=== PATIENT | female | born 2000 | race Caucasian/White ===

== ENCOUNTER → 2022-12-11 08:27 | Outpatient (BNVA) | payer SELFPAY | PROVIDERS: Family Provider Family Medicine; Visit Provider Nurse Practitioner Family | DX: R50.9 Fever, unspecified (principal) | CPT/HCPCS: 87426 ==

== ENCOUNTER 2024-06-01 03:35 | Inpatient (IN) | payer MEDICAID, SELFPAY ==
[2024-05-31 19:14] VITALS: BMI 29.6
[2024-05-31 19:31] VITALS: BP 125/87; PULSE 100
[2024-05-31 22:05] VITALS: BP 128/66; PULSE 69
[2024-05-31 22:21] VITALS: BP 122/69; PULSE 74
[2024-05-31 23:08] VITALS: BP 135/79; PULSE 69
[2024-05-31 23:22] LABS: Basophils % 0.1 %; Eosinophils % 0.4 %; Hematocrit 35.3 % (36-47); Lymphocytes # 0.9 10^3/uL (0.8-4.8); Lymphocytes % 8.5 %; Mean Corpuscular HGB Conc 33.7 g/dL (30-55); Mean Corpuscular Hemoglobin 30.9 pg (27-33); Mean Corpuscular Volume 91.7 fl (85-98); Mean Platelet Volume 11.5 fL (7.4-10.4); Monocytes # 0.5 10^3/uL (0.2-0.9); Monocytes % 4.6 %; Neutrophils # 9.01 10^3/uL (1.8-7.7); Nucleated Red Blood Cells % 0 %; Platelet Count 192 10^3/cmm (157-399); Red Blood Count 3.85 10^6/uL (3.85-5.65); Red Cell Distribution Width 12.8 % (12.1-15.1); White Blood Count 10.47 10^3/uL (3.29-11.43)
[2024-05-31 23:34] VITALS: BP 129/75; PULSE 67
[2024-06-01] VITALS (51 sets, daily range): BP systolic 91–137; BP diastolic 50–83; PULSE 58–95; RESP 16; TEMP 36.7; O2SAT 89–100
[2024-06-01] MEDS: lactated ringers 1,000 ML 999 ML IV ×2 (00:07→00:52)
[2024-06-01] MEDS: ROPivacaine syringe 100 MG/50 ML SYRINGE 13 MG EPIDURAL (01:01)
--- NOTE | 2024-06-01 01:07 | ANES.PAUD2 ---
Pre-Anesthetic Update Pre-Anesthetic Assessment: Date of Surgery/Procedure: 06/01/24 Proposed Procedure: Epidural Any changes to Pre-Anesthetic Assessment?: No Labs Last 48hrs: Short CBC 05/31/24 Range/Units 23:10 WBC 10.47 (3.29-11.43) 10^ 3/uL Hgb 11.90 (11.27-16.99) g/ dL Hct 35.3 L (36-47) % MCV 91.7 (85-98) fl Plt Count 192 (157-399) 10^3/c mm Neut % (Auto) 86.0 % Neut # (Auto) 9.01 H (1.8-7.7) 10^3/u L Blood Bank 05/31/24 23:10 Blood Type A Positive Rho(D) Type Rh positive Antibody Screen Negative Vitals: Pulse Rate 68 06/01/24 01:02 Pulse Rhythm Regular 05/31/24 23:19 Pulse Strength 3+ Normal 05/31/24 23:19 Respiratory Effort Spontaneous, Non- Labored 05/31/24 23:19 Respiratory Depth Normal 05/31/24 23:19 Respiratory Patter n Normal 05/31/24 23:19 Blood Pressure 130/83 06/01/24 00:58 Pulse Oximetry 100 06/01/24 01:02 Oxygen Delivery Me thod Room Air 05/31/24 23:19 Exam: Pre-Anes Outpt Exam: alert, oriented x 3, clear to auscultation bilaterally and regular rate & rhythm Cardiac Studies: No Data to Display
--- NOTE | 2024-06-01 01:07 | ANES.PROC ---
Anesthesia Procedures Procedure/Date: 06/01/24 Epidural: Time Out Performed: Yes Consents Signed: Procedure Consent and NPO Consent Consent: requested by attending/covering physician, from patient, risks and benefits reviewed and patient agrees to proceed Lumbar Level: L3-L4 Epidural position: sitting Epidural procedure: sterile prep of area (betadine), 1% lidocaine to numb the area (3 mLs), neg for paresthesia, test dose given, 1.5% xylocaine 1:200k epi (3 mLs/ 2 mLs), 0.2% Ropivacaine bolus ml (2 mLs), placed PCEA, no systemic response, sterile dressing applied, L.U.D. no apparent complications and 0.2% Ropiavacaine @ mls/hr (13) Additional Comments: EDOUARD 6.5cm, catheter threaded to 11.5cm. Patient tolerated procedure well. Negative for heme and CSF upon aspiration.
[2024-06-01] MEDS: dextrose 5%-lactated ringers 1,000 ML 125 ML IV (01:53)
--- NOTE | 2024-06-01 03:33 | P.HP_ITS ---
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 Patient was found to be grossly intact but was zaida every 2 to 3 minutes. Patient was watched for an hour and did not make small amount of change in that time. After another 2 hours of monitoring the patient did progressed to 4 cm dilated. At this time the patient was admitted for labor. The patient had normal lab work. The only complication during was late initiation of care which occurred approximately 19 weeks gestation. She did have consistent care after initiation. GBS was negative. Present Details : 1 Para: 0 care: good care Labs Blood type OB HPI: A (+) positive Rubella: Immune RPR: Negative GBS: Negative HBsAG: Negative Review of Systems 2 General: Reports: 10 or more systems reviewed and unremarkable except in HPI and below Medications/Allergies Home Medications Medication Instructions Recorded Confirmed Last Taken Type vit no.95-ferrous 1 tab PO DAILY 05/31/24 05/31/24 Unknown History fumarate 28 mg-folic acid 800 mcg tablet () Allergies Allergy/AdvReac Type Severity Reaction Status Date / Time No Known Allergies Allergy Verified 05/31/24 21:41 Vitals/I&O/Wt Last Vital Signs Pulse 74 06/01/24 03:29 BP 114/63 06/01/24 03:29 Pulse Ox 100 06/01/24 01:02 O2 Del Method Room Air 05/31/24 23:19 05/31/24 05/31/24 06/01/24 14:59 22:59 06:59 Intake Total 1999 Balance 1999 Weight last 48 hrs Weight 88.451 kg Physical Exam 2 Const: COMMON NORMALS: no acute distress, average body habitus and patient oriented x3 Resp: COMMON NORMALS: normal respiratory effort, No retractions and No use of accessory muscles Cardio: COMMON NORMALS: no JVD, regular rate and regular rhythm GI: OTHER: Gravid uterus : COMMON NORMALS: Yes normal external appearance Extremity: COMMON NORMALS: no clubbing, cyanosis or edema Neuro: COMMON NORMALS: patient oriented x3 and moves all extremities Psych: COMMON NORMALS: mental status grossly normal Skin: COMMON NORMALS: no rashes or lesions noted Urinary Catheter Management: Mills Latex Free: Cath Placed During This Visit: yes Urinary Catheter Date of Insertion: 06/01/24 Urinary Catheter Time of Insertion: 01:36 Data 05/31/24 23:10 Results Labs OB ([facility]): 2 Obstetrics US 03/22/24 Blood Type A Positive 05/31/24 Antibody Screen Negative 05/31/24 Hct 35.3 % (36-47) L 05/31/24 Hgb 11.90 g/dL (11.27-16.99) 05/31/24 Rho(D) Type Rh positive 05/31/24 Plt Count 192 10^3/cmm (157-399) 05/31/24 A&P Assessment and plan (1) Term : Proceed with routine labor management. Attestations 2 Medical Necessity Statement*: Admit for labor. Anticipate 1 midnight stay. Coding Level of Care Code Acute Code for Chg Fwd Diagnoses Term Z34.90
[2024-06-01] MEDS: ondansetron 2 mg/ML SDV 2 mL 4 MG IVP (03:48)
[2024-06-01] MEDS: ROPivacaine syringe 100 MG/50 ML SYRINGE 10 MG EPIDURAL (04:52)
[2024-06-01] MEDS: acetaminophen 325 mg Tablet 650 MG PO (06:49)
--- NOTE | 2024-06-01 08:43 | PM.DELIVERY ---
Delivery Note: Date of delivery: June 01, 2024 Pre-delivery diagnoses: Term intrauterine , meconium Post-delivery diagnoses: Same, viable infant female Procedure: Otitis vaginal delivery Op report anesthesia: Epidural Estimated blood loss (mL): 150 Pre-Delivery Course: This is a 23-year-old -0-1-0 that presented at 38 weeks 4 days with concerns of spontaneous rupture membranes. Patient was found to be zaida and while monitoring the patient the patient did make cervical change. Patient was then admitted and routine labor management was provided. The patient progressed as expected to completion. At that time artificial rupture membranes was performed and meconium was noted. The patient started pushing but did not make much progress so the patient opted to rest and labor down. Delivery: After a period of laboring down, the patient was placed back into normal lithotomy position and started pushing with contractions. After an hour of additional pushing the patient did deliver the infant's head followed by body without difficulty. The was placed onto mother's abdomen and the cord was then clamped and cut. The placenta was delivered with minimal traction. Review of the perineum showed a first-degree right vaginal tear that was actively bleeding. Patient had a smaller periurethral tear. Vaginal tear was repaired with 2-0 Vicryl and bleeding was controlled. Periurethral tear was minor and did not need repair. At the end of this procedure the uterus was was firm and bleeding was appropriate. Post-Delivery Status: Stable A&P Assessment and plan (1) Spontaneous vaginal delivery: Proceed with routine care. Coding Level of Care Code Acute Code for Chg Fwd Diagnoses Spontaneous vaginal delivery O80
[2024-06-01] MEDS: ibuprofen 800 mg tablet PO ×3 (10:52→21:40)
[2024-06-01] MEDS: lanolin oint 7 gm 1 APPLIC TOPICAL (10:52)
[2024-06-01] MEDS: benzocaine-menthol 78 gm Canister 1 SPRAY TOPICAL (10:52)
[2024-06-01] MEDS: PRENATAL VIT NO.130/IRON/FOLIC 1 EACH TABLET PO (10:53)
[2024-06-01] MEDS: docusate sodium 100 mg Capsule PO ×2 (10:53→19:09)
[2024-06-01] MEDS: oxytocin 30 UNIT/500 ML BAG 600 UNIT IV (14:00)
[2024-06-01 20:48] LABS: Hematocrit 31.9 % (36-47); Mean Corpuscular HGB Conc 33.9 g/dL (30-55); Mean Corpuscular Hemoglobin 31.6 pg (27-33); Mean Corpuscular Volume 93.3 fl (85-98); Mean Platelet Volume 11.6 fL (7.4-10.4); Platelet Count 162 10^3/cmm (157-399); Red Blood Count 3.42 10^6/uL (3.85-5.65); Red Cell Distribution Width 12.8 % (12.1-15.1); White Blood Count 9.07 10^3/uL (3.29-11.43)
[2024-06-02 05:01] VITALS: BP 118/74; PULSE 70; RESP 16; TEMP 36.6; TEMP 36.7; O2SAT 97
--- NOTE | 2024-06-02 06:48 | P.DS_ITS ---
Discharge Providers SAUSAGE COOKER Date of Admission: 06/01/24 03:35 Date of Discharge: 06/02/24 Attending Provider at Admission: Billy Royal MD Attending Provider at Discharge: Billy Royal MD Diagnoses at Discharge Discharge Diagnosis (1) Spontaneous vaginal delivery: Status: Acute Reason for Visit Reason for Visit: [facility] Hospital Course Hospital Course This is a 23-year-old G2, P1 delivered vaginally on June 01. The patient had presented with possible rupture but was found to be intact. However, she was zaida every 2 to 3 minutes she progressed completion and delivered a viable female without difficulty. Patient had no complications. Lochia has been appropriate. Vital signs stable. Information Peripartum Data: Infant Delivery Method: Vaginal Physical Exam Const: COMMON NORMALS: no acute distress, average body habitus and patient oriented x3 Neck/C-Spine: COMMON NORMALS: no JVD Resp: COMMON NORMALS: normal respiratory effort, No retractions and No use of accessory muscles Cardio: COMMON NORMALS: no JVD, regular rate and regular rhythm RATE: regular rate RHYTHM: regular rhythm GI: OTHER: Uterus firm and below umbilicus Extremity: COMMON NORMALS: no clubbing, cyanosis or edema Neuro: COMMON NORMALS: patient oriented x3 and moves all extremities Psych: COMMON NORMALS: mental status grossly normal Skin: COMMON NORMALS: no rashes or lesions noted GENERAL SKIN EXAM: no rashes or lesions noted Urinary Catheter Management: Mills Latex Free: Cath Placed During This Visit: yes, but has since been removed by the nurse Reason for Continuing Indwelling Catheter: Decision to DC Catheter Urinary Catheter Date of Insertion: 06/01/24 Urinary Catheter Time of Insertion: 01:36 Date Urinary Catheter Removed: 06/01/24 Time Urinary Catheter Discontinued: 04:10 Discharge Data Studies Completed and Pending Laboratory Results WBC 9.07 10^3/uL (3.29-11.43) 06/01/24 20:30 RBC 3.42 10^6/uL (3.85-5.65) L 06/01/24 20:30 Hgb 10.80 g/dL (11.27-16.99) L 06/01/24 20:30 Hct 31.9 % (36-47) L 06/01/24 20:30 MCV 93.3 fl (85-98) 06/01/24 20:30 MCH 31.6 pg (27-33) 06/01/24 20:30 MCHC 33.9 g/dL (30-55) 06/01/24 20:30 RDW 12.8 % (12.1-15.1) 06/01/24 20:30 Plt Count 162 10^3/cmm (157-399) 06/01/24 20:30 MPV 11.6 fL (7.4-10.4) H 06/01/24 20:30 Neut % (Auto) 86.0 % 05/31/24 23:10 Lymph % (Auto) 8.5 % 05/31/24 23:10 Stanly % (Auto) 4.6 % 05/31/24 23:10 Eos % (Auto) 0.4 % 05/31/24 23:10 Baso % (Auto) 0.1 % 05/31/24 23:10 Neut # (Auto) 9.01 10^3/uL (1.8-7.7) H 05/31/24 23:10 Lymph # (Auto) 0.9 10^3/uL (0.8-4.8) 05/31/24 23:10 Stanly # (Auto) 0.5 10^3/uL (0.2-0.9) 05/31/24 23:10 Eos # (Auto) 0.0 10^3/uL (0.0-0.8) 05/31/24 23:10 Baso # (Auto) 0.0 10^3/uL (0.0-0.1) 05/31/24 23:10 Nucleated RBC % (auto) 0 % 05/31/24 23:10 Nucleated RBCs # 0.0 /100WBC 05/31/24 23:10 Blood Type A Positive 05/31/24 23:10 Rho(D) Type Rh positive 05/31/24 23:10 Antibody Screen Negative 05/31/24 23:10 Vitals Last Vital Signs Temp 98.0 F 06/02/24 05:01 Pulse 70 06/02/24 05:01 Resp 16 06/02/24 05:01 BP 118/74 06/02/24 05:01 Pulse Ox 97 06/02/24 05:01 O2 Del Method Room Air 06/02/24 05:01 Results Labs OB ([facility]): Obstetrics US 03/22/24 Blood Type A Positive 05/31/24 Antibody Screen Negative 05/31/24 Hct 31.9 % (36-47) L 06/01/24 Hgb 10.80 g/dL (11.27-16.99) L 06/01/24 Rho(D) Type Rh positive 05/31/24 Plt Count 162 10^3/cmm (157-399) 06/01/24 Discharge Plan Discharge Patient Disposition: Home Condition: Stable Prescriptions: Continued PNV cmb#95-ferrous fumarate-FA [] 28 mg iron- 800 mcg Tablet 1 tab PO DAILY Discharge Orders: Discharge Order (Routine); Ordered 06/02/24 Ordered By: Billy Royal Referrals: Billy Royal MD [Physician] - 6 Weeks Discharge Diet: Usual diet Discharge Activity: Limit activity as instructed Patient Instructions: Opioid Safety Discharge Attestations SAUSAGE COOKER Time Spent in Discharge Care*: less than 30 min Coding Level of Care Code Acute Code for Chg Fwd Diagnoses Spontaneous vaginal delivery O80
--- NOTE | 2024-06-02 08:06 | ANE.PACU2 ---
Inpatient post-anesthesia follow up: Airway intact: Yes Vital signs: Temperature 98 F Pulse Rate 79 Respiratory Rate 16 Blood Pressure 105/64 Pulse Oximetry 98 Oxygen Delivery Me thod Room Air Oxygen Flow Rate Fraction of Inspir ed Oxygen Hydration adequate: Yes Nausea and vomiting: No Pain level: 1 Mental status: Baseline Epidural Start/End: Epidural Start Date: 06/01/24 Epidural Start Time: 00:44 Epidural End Date: 06/01/24 Epidural End Time: 08:43
[2024-06-02] MEDS: docusate sodium 100 mg Capsule PO (09:48)
[2024-06-02] MEDS: ibuprofen 800 mg tablet PO (09:48)
[2024-06-02] MEDS: PRENATAL VIT NO.130/IRON/FOLIC 1 EACH TABLET PO (09:48)
[2024-06-02 09:49] VITALS: BP 105/64; PULSE 79; RESP 15; TEMP 36.6; O2SAT 98
[2024-06-02 10:55] VITALS: BP 105/64; PULSE 79; RESP 16; TEMP 36.6; O2SAT 98
== END 2024-06-02 10:50 | disposition home or self-care (01) | DRG 806 ==
LOC: OPOB 03:35 → OBGYN 03:35
PROVIDERS: Admitting Provider Family Medicine; Visit Provider Family Medicine
DX: O77.0 Labor and delivery complicated by meconium in amniotic fluid (principal); O71.4 Obstetric high vaginal laceration alone; Z37.0 Single live birth; Z3A.38 38 weeks gestation of pregnancy
CPT/HCPCS: 36415; 51702; 59025; 59409; 83986; 85025; 85027; 86850; 86900; 96374; 99211; J2405; J2590; J2795; J7120; J7121